=== PATIENT | female | born 1980 | race Caucasian/White ===

== ENCOUNTER 2018-06-04 20:46 | Emergency (ER) | payer OTHER ==
[~2018-06-04] VITALS: Ht 170.2 cm; Wt 65.0 kg
[2018-06-04] MEDS ORDERED: adderall (21:06)
--- NOTE | 2018-06-04 21:06 | NUR ---
pt bib remsa after neighbor called ems. per ems, pt was sitting on floor screaming and telling stories that didn't make sense. upon arrival, pt mumbling and screaming nonsense stories. per ems, pt may have ingested a tea made with an unknown plant from her neighbor. pt is hyperactive, but cooperative. piv established group captain. no interventions given group captain. all vss. edmd assessment complete. awaiting orders at this time.
[2018-06-04 21:26] LABS: BASOPHILS # (AUTO) 0.03 x10^3/uL (0-0.1); BASOPHILS % (AUTO) 1 % (0-1); EOSINOPHILS # (AUTO) 0.02 x10^3/uL (0-0.4); EOSINOPHILS % (AUTO) 0 % (1-7); LYMPHOCYTES # (AUTO) 0.72 x10^3/uL (1-3.4); LYMPHOCYTES % (AUTO) 13 % (22-44); MD NO; MEAN CORPUSCULAR HEMOGLOBIN 35.6 pg (27.0-34.8); MEAN CORPUSCULAR HGB CONC 35.2 g/dL (32.4-35.8); MEAN CORPUSCULAR VOLUME 101.1 fL (80-100); MEAN PLATELET VOLUME 9.2 fL (7.4-10.4); MONOCYTES # (AUTO) 0.69 x10^3/uL (0.2-0.8); MONOCYTES % (AUTO) 13 % (2-9); NEUTROPHILS # (AUTO) 4.03 x10^3/uL (1.8-6.8); NEUTROPHILS % (AUTO) 74 % (42-75); PLATELET COUNT 226 x10^3/uL (130-400); RED CELL DISTRIBUTION WIDTH 12.8 % (9.6-15.2)
[2018-06-04 21:39] LABS: ALANINE AMINOTRANSFERASE 49 U/L (12-78); ALBUMIN 4.3 g/dL (3.4-5.0); ANION GAP 10 mmol/L (5-15); CHLORIDE 104 mmol/L (98-107); CREATININE 0.91 mg/dL (0.55-1.02)
[2018-06-04 21:41] LABS: SALICYLATE LEVEL < 1.7 mg/dL (2.8-20.0)
--- NOTE | 2018-06-04 21:41 | NUR ---
pt resting in secured room. pt continues talk and not make any sense. she states that she's talking to a doctor on the phone in her head who is trying to hack the wires connected to her insides before they kill her. pt is generally calm wtih occasional outbursts of yelling. no needs expressed at this time.
[2018-06-04 21:44] LABS: ALKALINE PHOSPHATASE 141 U/L (45-117); BILIRUBIN,TOTAL 1.6 mg/dL (0.2-1.0); TOTAL PROTEIN 7.8 g/dL (6.4-8.2)
[2018-06-04 21:46] LABS: ACETAMINOPHEN < 2 mcg/mL (10-30)
[2018-06-04] MEDS ORDERED: ZIPRASIDONE 20 MG INJ IM ONE ×2 (21:46→22:00)
--- NOTE | 2018-06-04 22:29 | NUR ---
BOYFRIEND: JENNIFER [phone]. PLEASE CALL FOR ANY UPDATES
--- NOTE | 2018-06-04 22:45 | NUR ---
LATE ENTRY 2209- PT RESTING ON GURNEY, NAD, PT CALM AND APPEARS DROWSY, PT'S BOYFRIEND AT BEDSIDE, SITTER AT DOORWAY FOR CONTINOUS MONITORING
--- NOTE | 2018-06-04 23:30 | NUR ---
PT UP TO RR WITH STANDBY ASSIST, SITTER AT PT'S SIDE.
[2018-06-05 00:07] LABS: AMPHETAMINE SCREEN, URINE Positive (Negative); BARBITURATE SCREEN, URINE Negative (Negative); BENZODIAZEPINE SCREEN, URINE Positive (Negative); CANNABINOID SCREEN, URINE Positive (Negative); COCAINE SCREEN, URINE Negative (Negative); METHADONE SCREEN, URINE Negative (Negative); OPIATE SCREEN, URINE Negative (Negative)
--- NOTE | 2018-06-05 00:17 | NUR ---
PT RESTING CALMLY IN ROOM, NAD, PROVIDED PT WITH WARM BLANKET, SITTER AT DOORWAY FOR CONTINOUS MONITORING
--- NOTE | 2018-06-05 01:07 | NUR ---
PT RESTING WITH EYES CLOSED NADN, EQUAL CHEST RISE/FALL OBSERVED, SITTER AT DOORWAY FOR CONTINOUS MONITORING
--- NOTE | 2018-06-05 01:15 | NUR ---
BILLIE RN: [facility]
--- NOTE | 2018-06-05 02:15 | NUR ---
PT'S BOYFRIEND STOPPED AND CHECKED ON PT, HE STATED "I'M CONCERNED THAT SHE WILL HAVE SIDE EFFECTS TO THE HALDOL THAT SHE WAS GIVEN EARLIER. DISCUSSED WITH HIM THAT PT HAS BEEN CALMLY SLEEPING AND NO SIDE EFFECTS HAVE BEEN OBSERVED, REASSURED HIM THAT SHE IS BEING MONITORED. PT IS CURRENTLY SLEEPING, NADN, EQUAL CHEST RISE/FALL OBSERVED, SITTER AT DOORWAY, BOYFRIEND STATED HE WILL CHECK BACK ON HER TOMORROW.
--- NOTE | 2018-06-05 03:24 | NUR ---
PT RESTING WITH EYES CLOSED, REPOSITIONED SELF IN BED, EQUAL CHEST RISE/FALL SEEN, SITTER AT DOORWAY FOR CONTINOUS MONITORING
--- NOTE | 2018-06-05 05:06 | NUR ---
LATE ENTRY 0415-PT RESTING WITH EYES CLOSED, NADN, EQUAL CHEST RISE/FALL OBSERVED, SITTER AT DOORWAY FOR CONTINOUS MONITORING
--- NOTE | 2018-06-05 05:07 | NUR ---
PT RESTING WITH EYES CLOSED, REPOSITIONED SELF IN BED, EQUAL CHEST RISE/FALL SEEN, SITTER AT DOORWAY FOR CONTINOUS MONITORING
--- NOTE | 2018-06-05 06:11 | NUR ---
PT RESTING IN BED WITH EYES CLOSED OPENS EYES EASILY TO VERBAL RESPONSE, DENIES PAIN OR NEEDS, SITTER AT DOORWAY FOR CONTINOUS MONITORING. CALL FOR HOSPITAL BED
--- NOTE | 2018-06-05 06:52 | NUR ---
received report from Denae. pt sleeping on hospital bed, NAD with equal chest rise/fall, comfort measures provided, pt remains in safe environment, sitter in view.
--- NOTE | 2018-06-05 06:53 | NUR ---
REPORT GIVEN TO EVE GAMBINO
--- NOTE | 2018-06-05 08:01 | NUR ---
pt continues sleeping on hospital bed, NAD with equal chest rise/fall, comfort measures provided, pt remains in safe environment, sitter in view. awaiting breakfast tray.
--- NOTE | 2018-06-05 09:01 | NUR ---
pt upright on gurney awake, calm & cooperative, responds to staff, NAD, comfort measures provided, breakfast tray given, pt remains in safe environment, sitter in full view.
--- NOTE | 2018-06-05 09:20 | NUR ---
[place] [facility] [phone]
--- NOTE | 2018-06-05 10:00 | NUR ---
pt ate breakfast, ambulated to BR, back to sleep on hospital bed, NAD with equal chest rise/fall, comfort measures provided, pt remains in safe environment, sitter in view.
--- NOTE | 2018-06-05 10:44 | NUR ---
BF arrived at BS, verbalized understanding of maintaining safety measures for psych pts (re: personal belongings, outside food, pt behavior).
--- NOTE | 2018-06-05 11:02 | NUR ---
pt laying on hospital bed awake, calm & cooperative, flight of ideas but responds approp to staff, NAD, comfort measures provided, BF at BS, pt remains in safe environment, sitter in view.
--- NOTE | 2018-06-05 12:01 | NUR ---
pt sitting up on hospital bed awake, calm & cooperative, watching TV, exhibiting flight of ideas at times but responds approp to staff, NAD, comfort measures provided, pt remains in safe environment, sitter in view.
--- NOTE | 2018-06-05 12:35 | NUR ---
[facility] unable to take pt, per BILLIE Ritchie RN, RN aware. Addendum: 06/05/18 at 1238 by [facility] unable to take pt d/t ins, BILLIE Esparza RN, RN aware.
--- NOTE | 2018-06-05 15:03 | NUR ---
pt laying on hospital bed awake, calm & cooperative, watching TV, exhibiting flight of ideas at times but responds approp to staff, NAD, comfort measures provided, pt remains in safe environment, sitter in view.
--- NOTE | 2018-06-05 16:01 | NUR ---
pt continues laying on hospital bed awake, calm & cooperative, watching TV, able to doze off, exhibiting flight of ideas at times but responds approp to staff, NAD, comfort measures provided, pt remains in safe environment, sitter in view.
[2018-06-05] MEDS ORDERED: ZIPRASIDONE 20 MG INJ IM ONE ×2 (17:00→17:01)
--- NOTE | 2018-06-05 17:02 | NUR ---
pt laying on hospital bed awake, mostly calm & cooperative, occas episodes of agitation & restlessness (states breathalyzer "looks like a dangerous toy and you need to get that out of here", leaves room frequently, sitting at doorway), watching TV at times, exhibiting flight of ideas at times but responds approp to staff, NAD, comfort measures provided, pt remains in safe environment, sitter in view.
--- NOTE | 2018-06-05 18:03 | NUR ---
pt sleeping on hospital bed, NAD with equal chest rise/fall, comfort measures provided, pt remains in safe environment, sitter in view.
[2018-06-05] MEDS ORDERED: ACETAMINOPHEN 325 MG TABLET PO PRN (19:00)
[2018-06-05] MEDS ORDERED: BISACODYL 10 MG SUPP PR PRN (19:00)
[2018-06-05] MEDS ORDERED: DOCUSATE 100 MG CAPSULE PO PRN (19:00)
[2018-06-05] MEDS ORDERED: POLYETHYLENE GLYCOL 17 GM PACKET PO PRN (19:00)
[2018-06-05] MEDS ORDERED: ZIPRASIDONE 20MG CAPSULE PO PRN (19:00)
[2018-06-05] MEDS ORDERED: DIPHENHYDRAMINE 50 MG CAPSULE PO PRN (19:00)
[2018-06-05] MEDS ORDERED: ONDANSETRON ODT 4 MG PO PRN (19:00)
--- NOTE | 2018-06-05 19:02 | NUR ---
report given to Brittany PRADO
--- NOTE | 2018-06-05 19:12 | NUR ---
ASSUMED CARE OF PATIENT. PATIENT RESTING IN ROOM. SITTER AT DOOR. WILL CONTINUE TO MONITOR.
[2018-06-05 19:46] LABS: FOLATE LEVEL > 20.0 ng/mL (3.1-17.5)
--- NOTE | 2018-06-05 19:59 | NUR ---
PT RESTING IN ROOM. NO ACUTE DISTRESS NOTED. SITTER AT DOOR. WILL CONTINUE TO MONITOR.
--- NOTE | 2018-06-05 20:28 | NUR ---
PT GIVEN A FRUIT TRAY AND VEGGIE TRAY PER REQUEST. PT EATING IN ROOM. SITTER AT DOOR. WILL CONTINUE TO MONITOR.
--- NOTE | 2018-06-05 21:15 | NUR ---
PT RESTING IN ROOM. SITTER AT DOOR. NO ACUTE DISTRESS NOTED. WILL CONTINUE TO MONITOR.
--- NOTE | 2018-06-05 22:04 | NUR ---
PT RESTING IN ROOM. REGULAR RESP. WILL CONTINUE TO MONITOR.
--- NOTE | 2018-06-05 22:21 | NUR ---
PT RESTING IN ROOM. SITTER AT DOOR. WILL CONTINUE TO MONITOR.
--- NOTE | 2018-06-05 23:01 | NUR ---
PT RESTING IN ROOM. NO ACUTE DISTRESS NOTED. REGULAR RESP. SITTER AT DOOR. WILL CONTINUE TO MONITOR.
--- NOTE | 2018-06-05 23:52 | NUR ---
pt resting in room. no acute distress noted. sitter at door. will continue to monitor.
--- NOTE | 2018-06-06 00:47 | NUR ---
PT RESTING IN ROOM. NO ACUTE DISTRESS NOTED. SITTER AT DOOR. WILL CONTINUE TO MONITOR.
--- NOTE | 2018-06-06 01:41 | NUR ---
REPORT GIVEN TO EVE WILLIAM
--- NOTE | 2018-06-06 02:32 | NUR ---
PT RESTING IN BED, SITTING UP, EATING. NO STATED NEEDS AT THIS TIME. SITTER AT DOOR.
--- NOTE | 2018-06-06 03:34 | NUR ---
PT RESTING CALMLY IN BED WITH EYES CLOSED. NAD, RESP EVEN AND NON LABORED. SITTER AT DOOR.
--- NOTE | 2018-06-06 04:22 | NUR ---
PT CONTINUES TO REST IN BED WITH EYES CLOSED.
--- NOTE | 2018-06-06 05:33 | NUR ---
PT RESTING IN BED WITH EYES CLOSED. SITTER AT DOOR FOR OBS.
--- NOTE | 2018-06-06 06:36 | NUR ---
PT RESTING CALMLY IN BED WITH HEAD COVERED [facility] BLANKET. PT RESP EVEN AND NON LABORED. SITTER AT DOOR.
--- NOTE | 2018-06-06 07:13 | NUR ---
Report from [facility]. Pt resting in bed. Respirations even and unlabored.
--- NOTE | 2018-06-06 08:47 | NUR ---
Pt remains sleeping, resp even, unlabored.
--- NOTE | 2018-06-06 09:41 | NUR ---
TASK RN: PT ASKING WHEN HER 72 HOUR HOLD WILL OVER SO THAT SHE CAN COORDINATE A RIDE HOME, RN INFORMED HER THAT HER PRIMARY RN DALI WOULD BE ABLE TO GIVE HER THE DETAILS WHEN HE RETURNS
--- NOTE | 2018-06-06 10:45 | NUR ---
Pt resting in bed, NAD
--- NOTE | 2018-06-06 11:07 | NUR ---
Lety from social work at bedside
[2018-06-06] MEDS ORDERED: NICOTINE 14MG/24 HR PATCH.TD24 ONE (11:58)
[2018-06-06] MEDS ORDERED: NICOTINE 14MG/24 HR PATCH.TD24 TD SCH (12:00)
--- NOTE | 2018-06-06 12:31 | NUR ---
Pt assisted to phone to call mother. Pt now back in room, eating lunch. NAD.
--- NOTE | 2018-06-06 16:00 | NUR ---
Pt NAD. Mother visiting pt at this time.
--- NOTE | 2018-06-06 17:50 | NUR ---
IF PT IS NOT ACCEPTED AT FACILITY BY 2100. BECCA VERA REQUESTS THAT A TELE PSYCH BE DONE FOR MED RECOMMENDATION THAT HE WILL START TOMORROW
--- NOTE | 2018-06-06 17:50 | NUR ---
PT INSURANCE UPDATED. PACKET FAXED TO [facility], [facility] AND [facility]
--- NOTE | 2018-06-06 18:31 | NUR ---
Pt's mother has just left. Pt resting in bed. NAD. Sitter outside room.
--- NOTE | 2018-06-06 19:17 | NUR ---
Akila jacinto in [facility] - 06/06/18 at 1918 by [place] REPORT GIVEN TO INGRID DUBON RN. ACCEPTING MD WILL BE DR ALMONTE
--- NOTE | 2018-06-06 19:19 | NUR ---
REPORT GIVEN TO INGRID DUBON RN. ACCEPTING MD WILL BE DR ALMONTE
[2018-06-06 19:35] VITALS: BP 112/76
--- NOTE | 2018-06-06 19:35 | NUR ---
pt sitting up in bed, nad, respirations even and unlabored, room secured, sitter at doorway for continous monitoring
--- NOTE | 2018-06-06 20:30 | NUR ---
pt resting calmly watching tv, nad, denies needs, sitter at doorway for continous monitoring.
--- NOTE | 2018-06-06 21:20 | NUR ---
pt resting calmly, nad, provided pt with clean disposable underpants per her request, denies further needs at this time, sitter at doorway for continous monitoring
--- NOTE | 2018-06-06 22:14 | NUR ---
pt resting in bed, nad, sitter at doorway for continous monitoring
== END 2018-06-06 23:02 | disposition home or self-care (01) ==
LOC: ED 23:05 → UNDOADMIN 06-05 18:34 → EDIP 06-05 18:34 → ED 06-06 23:02
DX: F22 Delusional disorders (principal)
CPT/HCPCS: 36415; 80053; 80307; 80329; 82607; 82746; 84703; 85025; 96372; 99284; J3486; G0480